=== PATIENT | male | born 1950 | race Caucasian/White ===

== ENCOUNTER 2018-01-12 12:59 | Emergency (ER) | payer MEDICARE, OTHER ==
[~2018-01-12] VITALS: Ht 190.5 cm; Wt 88.5 kg
[~2018-01-12 12:59] MED LIST: MULT-608 PO
[2018-01-12] MEDS ORDERED: fentaNYL INJECTION 100 MCG/2 ML AMP IVP ONE ×2 (13:45→14:30)
[2018-01-12] MEDS ORDERED: ASPI-999 PO (13:56)
--- NOTE | 2018-01-12 14:04 | ED Lower Extremity ---
General Chief Complaint: Lower Extremity Stated Complaint: LT ankle inj Nursing Triage Note: ARRIVED VIA WC TO ROOM 07 WITH COMPLAINTS OF RIGHT ANKLE PAIN. STATES HE LEFT HIS LAWNMOWER IN GEAR TRYING TO GET IT OUT OF THE DITCH AND THE MOWER RAN OVER HIS ANKLE WITH THE BLADES OFF. Nursing Sepsis Screen: No Definite Risk Source: patient Exam Limitations: no limitations History of Present Illness Date Seen by Provider: January 12, 2018 Time Seen by Provider: 14:02 Initial Comments To ER with left ankle pain. He was mowing his yard when his lawnmower got stuck. He got off to push it out of the ditch and the tire ran over his foot. He now has what appears to be a dislocation of the ankle without laceration or abrasion. Onset: just prior to arrival Severity: moderate Pain/Injury Location: left ankle Modifying Factors: Worse With Movement Allergies and Home Medications Allergies Coded Allergies: No Known Drug Allergies (Unverified , 07/23/11) Home Medications Aspirin 81 Mg Tab.chew, 81 MG PO DAILY, (Reported) Patient Home Medication List Home Medication List Reviewed: Yes Constitutional: see HPI EENTM: see HPI Respiratory: no symptoms reported Cardiovascular: no symptoms reported Genitourinary: no symptoms reported Musculoskeletal: see HPI Skin: no symptoms reported Psychiatric/Neurological: No Symptoms Reported Past Ihdoeqd-[id number]-[id number] Hx Patient Social History Alcohol Use: Occasionally Uses Recreational Drug Use: No Smoking Status: Former Smoker Recent Foreign Travel: No Contact w/Someone Who Travel: No Recent Infectious Disease Expo: No Recent Hopitalizations: No Immunizations Up To Date Date of Influenza Vaccine: Apr 23, 2011 Past Medical History Orthopedic Respiratory: No Cardiac: No Neurological: Yes (NEUROPATHY IN ALL EXTREMITIES) Reproductive Disorders: No Sexually Transmitted Disease: No Genitourinary: No Gastrointestinal: No Musculoskeletal: Yes (ARTHRITIS) Endocrine: No HEENT: No Cancer: No Psychosocial: No Integumentary: No Blood Disorders: No Physical Exam Vital Signs Vital Signs - First Documented 01/12/18 13:30 Temp 98.0 Pulse 86 Resp 18 B/P (MAP) 166/85 (112) Pulse Ox 98 Capillary Refill : Less Than 3 Seconds General Appearance: WD/WN, no apparent distress HEENT: PERRL/EOMI, normal ENT inspection Neck: non-tender, full range of motion Respiratory: no respiratory distress, no accessory muscle use Gastrointestinal: normal bowel sounds, non tender Hips: bilateral hip non-tender, bilateral hip normal inspection, bilateral hip normal range of motion Legs: bilateral leg non-tender, bilateral leg normal inspection, bilateral leg normal range of motion Knees: bilateral knee non-tender, bilateral knee normal inspection, bilateral knee normal range of motion Ankles: left ankle deformity, left ankle soft tissue tenderness, left ankle swelling, left ankle other (There is a palpable dorsalis pedis pulse with brisk capillary refill of the toes) Neurologic/Psychiatric: alert, normal mood/affect, oriented x 3 Skin: normal color, warm/dry Procedures/Interventions Patient Education: Explained Benefits, Explained Risks, Pt. Ack. Understanding Agreement on procedure with pt: Yes Breath Sounds per Auscultation: Clear Heart Sounds per Auscultation: Regular Airway Exam: Mouth opens >2 fingers, Neck Full Range of Motion, Visulation of Uvula Total Time spent in CS Attempted reduction with just 75 g of fentanyl but this did not achieve adequate pain control. He was then given 10 mg of etomidate achieved sedation lasting about 7 minutes. The ankle was reduced with simple traction laced in a posterior short leg and stirrup style splint. Remains neurovascularly intact. Progress/Results/Core Measures Results/Orders Lab Results Laboratory Tests Test 01/12/18 13:40 Range/Units White Blood Count 14.1 H 4.3-11.0 10^3/uL Red Blood Count 3.95 L 4.35-5.85 10^6/uL Hemoglobin 13.2 L 13.3-17.7 G/DL Hematocrit 38 L 40-54 % Mean Corpuscular Volume 96 80-99 FL Mean Corpuscular Hemoglobin 33 25-34 PG Mean Corpuscular Hemoglobin Concent 35 32-36 G/DL Red Cell Distribution Width 12.4 10.0-14.5 % Platelet Count 331 130-400 10^3/uL Mean Platelet Volume 8.6 7.4-10.4 FL Neutrophils (%) (Auto) 78 H 42-75 % Lymphocytes (%) (Auto) 13 12-44 % Monocytes (%) (Auto) 8 0-12 % Eosinophils (%) (Auto) 1 0-10 % Basophils (%) (Auto) 0 0-10 % Neutrophils # (Auto) 11.0 H 1.8-7.8 X 10^3 Lymphocytes # (Auto) 1.9 1.0-4.0 X 10^3 Monocytes # (Auto) 1.1 H 0.0-1.0 X 10^3 Eosinophils # (Auto) 0.1 0.0-0.3 10^3/uL Basophils # (Auto) 0.0 0.0-0.1 10^3/uL Neutrophils % (Manual) 72 % Lymphocytes % (Manual) 15 % Monocytes % (Manual) 9 % Eosinophils % (Manual) 4 % Blood Morphology Comment NORMAL Sodium Level 130 L 135-145 MMOL/L Potassium Level 4.2 3.6-5.0 MMOL/L Chloride Level 97 L 98-107 MMOL/L Carbon Dioxide Level 22 21-32 MMOL/L Anion Gap 11 5-14 MMOL/L Blood Urea Nitrogen 13 7-18 MG/DL Creatinine 0.94 0.60-1.30 MG/DL Estimat Glomerular Filtration Rate > 60 BUN/Creatinine Ratio 14 Glucose Level 85 70-105 MG/DL Calcium Level 9.1 8.5-10.1 MG/DL Total Bilirubin 0.4 0.1-1.0 MG/DL Aspartate Amino Transf (AST/SGOT) 21 5-34 U/L Alanine Aminotransferase (ALT/SGPT) 18 0-55 U/L Alkaline Phosphatase 83 40-136 U/L Total Protein 7.6 6.4-8.2 GM/DL Albumin 4.2 3.2-4.5 GM/DL Serum Alcohol 34 H <10 MG/DL My Orders Orders - JANN IDALLO [employer] Cbc With Automated Diff (01/12/18 13:41) Comprehensive Metabolic Panel (01/12/18 13:41) Alcohol (01/12/18 13:41) Ankle, Left, 3 Views (01/12/18 13:41) Tibia/Fibula, Left, 2 Views (01/12/18 13:41) Iv Heplock-Insert (Order) (01/12/18 13:41) Fentanyl Injection (Sublimaze Injection (01/12/18 13:45) Manual Differential (01/12/18 13:40) Fentanyl Injection (Sublimaze Injection (01/12/18 14:30) Ankle, Left, 2 Views (01/12/18 14:28) Etomidate Injection (Amidate Injection) (01/12/18 14:55) Etomidate Injection (Amidate Injection) (01/12/18 15:15) Oxycodone/Apap 5/325mg Tablet (Percocet (01/12/18 16:15) Medications Given in ED Current Medications Medications Dose Ordered Sig/Loc Route Start Time Stop Time Status Last Admin Dose Admin Etomidate 10 mg ONCE ONCE IV 01/12/18 15:15 01/12/18 15:16 DC 01/12/18 15:02 10 MG Fentanyl Citrate 50 mcg ONCE ONCE IVP 01/12/18 13:45 01/12/18 13:46 DC 01/12/18 13:49 50 MCG Fentanyl Citrate 50 mcg ONCE ONCE IVP 01/12/18 14:30 01/12/18 14:31 DC 01/12/18 14:57 50 MCG Vital Signs/I&O 01/12/18 13:30 Temp 98.0 Pulse 86 Resp 18 B/P (MAP) 166/85 (112) Pulse Ox 98 Blood Pressure Mean: 112 Departure Communication (Admissions) 1611-Dr Ko notified. Receommends continued splinting, elevate Impression Primary Impression: Fracture dislocation of ankle Disposition: 01 HOME, SELF-CARE Condition: Stable Departure-Patient Inst. Decision time for Depature: 15:13 Referrals: MARIA ALEJANDRA KO JACQUELINE S DO (PCP/Family) Primary Care Physician Patient Instructions: Ankle Fracture (DC) Add. Discharge Instructions: 1. Elevate the leg on 2-3 pillows while you're sleeping and after sitting in a recliner initially the feet are up. Do not put any weight on this leg, use crutches when walking. Keep this clean dry and covered. Do not let any water come into contact with this. Call the clinic of Dr. Ko tomorrow morning to make an appointment to be seen. Advised them that I spoke with him today in the emergency room and he would like to see you in the clinic tomorrow. Pain medication as directed. Return to ER for any intolerable pain, cold numb toes or other concerns. All discharge instructions reviewed with patient and/or family. Voiced understanding. Scripts Oxycodone HCl/Acetaminophen (Percocet 5-325 mg Tablet) 1 Each Tablet 1 EACH PO Q4H, #30 TAB Prov: JANN DIALLO APRN 5/29/18 Copy Copies To 1: MARIA ALEJANDRA KO PETER J APRN January 12, 2018 14:04
[2018-01-12 14:25] LABS: BASOPHILS % (AUTO) 0 % (0-10); EOSINOPHILS # (AUTO) 0.1 10^3/uL (0.0-0.3); EOSINOPHILS % (AUTO) 1 % (0-10); HEMATOCRIT 38 % (40-54); HEMOGLOBIN 13.2 G/DL (13.3-17.7); LYMPHOCYTES # (AUTO) 1.9 X 10^3 (1.0-4.0); LYMPHOCYTES % (AUTO) 13 % (12-44); MEAN CORPUSCULAR HEMOGLOBIN 33 PG (25-34); MEAN CORPUSCULAR HGB CONC 35 G/DL (32-36); MEAN CORPUSCULAR VOLUME 96 FL (80-99); MEAN PLATELET VOLUME 8.6 FL (7.4-10.4); MONOCYTES # (AUTO) 1.1 X 10^3 (0.0-1.0); MONOCYTES % (AUTO) 8 % (0-12); NEUTROPHILS % (AUTO) 78 % (42-75); PLATELET COUNT 331 10^3/uL (130-400); RED BLOOD COUNT 3.95 10^6/uL (4.35-5.85); RED CELL DISTRIBUTION WIDTH 12.4 % (10.0-14.5); WHITE BLOOD COUNT 14.1 10^3/uL (4.3-11.0)
--- NOTE | 2018-01-12 14:38 | Diagnostic Imaging Report ---
Indication: Left ankle injury. Three views of the left ankle show comminuted bimalleolar fracture with lateral subluxation. Impression: Bimalleolar fracture left ankle with lateral subluxation by about one third of the width of the articular surface. CRITICAL FINDINGS Dictated by: Dictated on workstation # [id number]
--- NOTE | 2018-01-12 14:40 | Diagnostic Imaging Report ---
INDICATION: Ankle fracture. AP and lateral views of left tibia fibula show bimalleolar fracture of the ankle. The tibial and fibular shaft appears to be intact. IMPRESSION: Bimalleolar fracture of the ankle with mild lateral subluxation. Dictated by: Dictated on workstation # [id number]
[2018-01-12 14:41] LABS: ALANINE AMINOTRANSFERASE 18 U/L (0-55); ALBUMIN 4.2 GM/DL (3.2-4.5); ALKALINE PHOSPHATASE 83 U/L (40-136); BILIRUBIN,TOTAL 0.4 MG/DL (0.1-1.0); BUN/CREATININE RATIO 14; CALCIUM 9.1 MG/DL (8.5-10.1); CARBON DIOXIDE 22 MMOL/L (21-32); CHLORIDE 97 MMOL/L (98-107); CREATININE SERUM 0.94 MG/DL (0.60-1.30); GFR ESTIMATED > 60; GLUCOSE 85 MG/DL (70-105); POTASSIUM 4.2 MMOL/L (3.6-5.0); SODIUM 130 MMOL/L (135-145); TOTAL PROTEIN 7.6 GM/DL (6.4-8.2)
[2018-01-12 14:50] LABS: EOSINOPHILS % (MANUAL) 4 %; LYMPHOCYTES % (MANUAL) 15 %; MONOCYTES % (MANUAL) 9 %; NEUTROPHILS % (MANUAL) 72 %; RBC MORPH NORMAL
[2018-01-12] MEDS ORDERED: ETOMIDATE IV SOLN 20 MG/10 ML VIAL ONE (14:55)
[2018-01-12] MEDS ORDERED: ETOMIDATE IV SOLN 20 MG/10 ML VIAL IV ONE (15:15)
--- NOTE | 2018-01-12 15:42 | Diagnostic Imaging Report ---
PATIENT HISTORY: Post reduction left ankle fracture. TECHNIQUE: Two views of the left ankle. COMPARISON: Radiographs from the same day. FINDINGS: Redemonstrated are displaced fractures of the medial and lateral malleoli, with mild lateral subluxation of the talus from the tibia. A definitive posterior malleolus fracture is not identified. There are plantar calcaneal and Achilles tendon enthesophytes. An os peroneum is noted. A fiberglass cast material is seen about the left ankle. There is surrounding soft tissue edema. The AP alignment of the tibiotalar joint appears improved. IMPRESSION: Redemonstrated fractures of the medial and lateral malleoli in the left ankle with mildly improved alignment. Dictated by: Dictated on workstation # [id number]
[2018-01-12] MEDS ORDERED: oxyCODONE/APAP 5/325MG (PERCOCET 5) TABLET PO ONE (16:15)
[2018-01-12] MEDS ORDERED: OXYC-197 PO (16:15)
[2018-01-12 16:56] VITALS: BP 162/99
== END 2018-01-12 16:56 | disposition home or self-care (01) ==
LOC: EDUNIT# 12:59 → ER 13:01
DX: S82.842A Displaced bimalleolar fracture of left lower leg, initial encounter for closed fracture (principal); S93.02XA Subluxation of left ankle joint, initial encounter; G62.9 Polyneuropathy, unspecified; Z87.891 Personal history of nicotine dependence; Z79.82 Long term (current) use of aspirin; W28.XXXA Contact with powered lawn mower, initial encounter
CPT/HCPCS: 27840; 29515; 36415; 73590; 73600; 73610; 80053; 80320; 85007; 85027; 93041; 96374; 96376

== ENCOUNTER 2018-10-02 14:45 | Emergency (ER) | payer MEDICARE, OTHER ==
[~2018-10-02] VITALS: Ht 190.5 cm; Wt 88.5 kg
[~2018-10-02 14:45] MED LIST changes: +ASPI-999 PO; +OXYC1TAB87 PO
[2018-10-02 16:46] LABS: HEMATOCRIT 38 % (40-54); HEMOGLOBIN 13.1 G/DL (13.3-17.7); MEAN CORPUSCULAR HEMOGLOBIN 33 PG (25-34); MEAN CORPUSCULAR HGB CONC 34 G/DL (32-36); MEAN CORPUSCULAR VOLUME 97 FL (80-99); RED CELL DISTRIBUTION WIDTH 12.2 % (10.0-14.5); WHITE BLOOD COUNT 10.3 10^3/uL (4.3-11.0)
[2018-10-02 16:47] LABS: BASOPHILS % (AUTO) 0 % (0-10); CARBON DIOXIDE 23 MMOL/L (21-32); CHLORIDE 95 MMOL/L (98-107); EOSINOPHILS # (AUTO) 0.2 10^3/uL (0.0-0.3); EOSINOPHILS % (AUTO) 2 % (0-10); LYMPHOCYTES # (AUTO) 4.4 X 10^3 (1.0-4.0); LYMPHOCYTES % (AUTO) 43 % (12-44); MEAN PLATELET VOLUME 8.3 FL (7.4-10.4); MONOCYTES # (AUTO) 0.8 X 10^3 (0.0-1.0); MONOCYTES % (AUTO) 8 % (0-12); NEUTROPHILS # (AUTO) 4.8 X 10^3 (1.8-7.8); NEUTROPHILS % (AUTO) 47 % (42-75); PLATELET COUNT 336 10^3/uL (130-400); POTASSIUM 3.8 MMOL/L (3.6-5.0); SODIUM 128 MMOL/L (135-145)
[2018-10-02 16:48] LABS: ALANINE AMINOTRANSFERASE 19 U/L (0-55); ALBUMIN 4.1 GM/DL (3.2-4.5); ALKALINE PHOSPHATASE 75 U/L (40-136); BILIRUBIN,TOTAL 0.4 MG/DL (0.1-1.0); BUN/CREATININE RATIO 10; CALCIUM 8.9 MG/DL (8.5-10.1); CREATINE KINASE MB 5.1 NG/ML (<6.6); CREATININE SERUM 0.93 MG/DL (0.60-1.30); GFR ESTIMATED > 60; GLUCOSE 92 MG/DL (70-105); MAGNESIUM 2.1 MG/DL (1.8-2.4); MYOGLOBIN SERUM 53.1 NG/ML (10.0-92.0); TOTAL PROTEIN 7.4 GM/DL (6.4-8.2)
[2018-10-02] MEDS ORDERED: NS IV 1000 ML 1,000 ML IV ONE (16:53)
--- NOTE | 2018-10-02 17:09 | Diagnostic Imaging Report ---
CHEST 1 VIEW, AP/PA ONLY Indication: Syncope. Comparison: 07/17/2011. Findings: No focal airspace disease in the visualized lungs. Please note that the posterior lower lobes are poorly evaluated by portable radiography. Hyperaerated lung volume is present. No pleural effusion or pneumothorax. Normal cardiomediastinal silhouette. Impression: No acute cardiopulmonary process by portable radiography. Dictated by: Dictated on workstation # [id number]
[2018-10-02 17:29] LABS: BILIRUBIN,URINE NEGATIVE (NEGATIVE); CLARITY,URINE CLEAR; COLOR,URINE YELLOW; GLUCOSE, URINE (UA) NEGATIVE (NEGATIVE); KETONES,URINE 1+ (NEGATIVE); LEUKOCYTE ESTERASE ,URINE NEGATIVE (NEGATIVE); NITRITE,URINE NEGATIVE (NEGATIVE); PH,URINE 6 (5-9); PROTEIN,URINE 2+ (NEGATIVE); UROBILINOGEN,URINE NORMAL (NORMAL)
--- NOTE | 2018-10-02 17:37 | ED Syncope ---
General Chief Complaint: Dizziness/Syncope Stated Complaint: SYNCOPE Nursing Triage Note: EMS advises that the patient was drinking with friends when the patients head when back and the patient became unresponsive. EMS advises that the family/friends attempted CPR on the patient and the patient became more alert. Pt. upon arrival to the ER is A&O and answering all questions appropriately. Source of Information: Patient Exam Limitations: No Limitations Allergies and Home Medications Allergies Coded Allergies: No Known Drug Allergies (Unverified , 10/02/18) Home Medications Aspirin 81 Mg Tab.chew, 81 MG PO DAILY, (Reported) Oxycodone HCl/Acetaminophen 1 Each Tablet, 1 EACH PO Q4H Prescribed by: JANN DIALLO on 01/12/18 1615 Past Qgmzsnr-Gsuelu-Shpvsd Hx Patient Social History Alcohol Use: Occasionally Uses Recreational Drug Use: No Smoking Status: Former Smoker Type Used: Cigarettes Former Smoker, Quit: Aug 01, 2018 Recent Foreign Travel: No Contact w/Someone Who Travel: No Recent Infectious Disease Expo: No Recent Hopitalizations: No Immunizations Up To Date Date of Pneumonia Vaccine: Jul 23, 2009 Date of Influenza Vaccine: Apr 23, 2011 Seasonal Allergies Seasonal Allergies: No Past Medical History Surgeries: Yes (ankle) Orthopedic Respiratory: No Cardiac: No Neurological: Yes (NEUROPATHY IN ALL EXTREMITIES) Reproductive Disorders: No Sexually Transmitted Disease: No Genitourinary: No Gastrointestinal: No Musculoskeletal: Yes (ARTHRITIS) Endocrine: No HEENT: No Cancer: No Prostate Psychosocial: No Integumentary: No Blood Disorders: No Physical Exam Vital Signs Vital Signs - First Documented 10/02/18 14:45 Temp 98.7 Pulse 78 Resp 14 B/P (MAP) 164/91 (115) Pulse Ox 98 Capillary Refill : Less Than 3 Seconds Height, Weight, BMI Height: 6'3.00" Weight: 195lbs. oz. 88.674147xf; BMI Method:Stated Procedures/Interventions Patient Education: Explained Benefits, Explained Risks, Pt. Ack. Understanding Breath Sounds per Auscultation: Clear Heart Sounds per Auscultation: Regular Airway Exam: Mouth opens >2 fingers, Neck Full Range of Motion, Visulation of Uvula Progress/Results/Core Measures Results/Orders Lab Results Laboratory Tests Test 10/02/18 14:51 10/02/18 17:17 Range/Units White Blood Count 10.3 4.3-11.0 10^3/uL Red Blood Count 3.93 L 4.35-5.85 10^6/uL Hemoglobin 13.1 L 13.3-17.7 G/DL Hematocrit 38 L 40-54 % Mean Corpuscular Volume 97 80-99 FL Mean Corpuscular Hemoglobin 33 25-34 PG Mean Corpuscular Hemoglobin Concent 34 32-36 G/DL Red Cell Distribution Width 12.2 10.0-14.5 % Platelet Count 336 130-400 10^3/uL Mean Platelet Volume 8.3 7.4-10.4 FL Neutrophils (%) (Auto) 47 42-75 % Lymphocytes (%) (Auto) 43 12-44 % Monocytes (%) (Auto) 8 0-12 % Eosinophils (%) (Auto) 2 0-10 % Basophils (%) (Auto) 0 0-10 % Neutrophils # (Auto) 4.8 1.8-7.8 X 10^3 Lymphocytes # (Auto) 4.4 H 1.0-4.0 X 10^3 Monocytes # (Auto) 0.8 0.0-1.0 X 10^3 Eosinophils # (Auto) 0.2 0.0-0.3 10^3/uL Basophils # (Auto) 0.0 0.0-0.1 10^3/uL Sodium Level 128 L 135-145 MMOL/L Potassium Level 3.8 3.6-5.0 MMOL/L Chloride Level 95 L 98-107 MMOL/L Carbon Dioxide Level 23 21-32 MMOL/L Anion Gap 10 5-14 MMOL/L Blood Urea Nitrogen 9 7-18 MG/DL Creatinine 0.93 0.60-1.30 MG/DL Estimat Glomerular Filtration Rate > 60 BUN/Creatinine Ratio 10 Glucose Level 92 70-105 MG/DL Calcium Level 8.9 8.5-10.1 MG/DL Corrected Calcium 8.8 8.5-10.1 MG/DL Magnesium Level 2.1 1.8-2.4 MG/DL Total Bilirubin 0.4 0.1-1.0 MG/DL Aspartate Amino Transf (AST/SGOT) 27 5-34 U/L Alanine Aminotransferase (ALT/SGPT) 19 0-55 U/L Alkaline Phosphatase 75 40-136 U/L Creatine Kinase MB 5.1 <6.6 NG/ML Myoglobin 53.1 10.0-92.0 NG/ML Troponin I < 0.028 <0.028 NG/ML Total Protein 7.4 6.4-8.2 GM/DL Albumin 4.1 3.2-4.5 GM/DL Serum Alcohol 124 H <10 MG/DL My Orders Orders - MOMO HOFFMAN MD Cbc With Automated Diff (10/02/18 14:51) Alcohol (10/02/18 14:51) Creatine Kinase Mb (10/02/18 14:51) Comprehensive Metabolic Panel (10/02/18 14:51) Magnesium (10/02/18 14:51) Myoglobin Serum (10/02/18 14:51) Troponin I (10/02/18 14:51) Urinalysis (10/02/18 16:46) Saline Lock/Iv-Start (10/02/18 16:53) Ns Iv 1000 Ml (Sodium Chloride 0.9%) (10/02/18 16:53) Chest 1 View, Ap/Pa Only (10/02/18 ) Medications Given in ED Current Medications Medications Dose Ordered Sig/Loc Route Start Time Stop Time Status Last Admin Dose Admin Sodium Chloride 1,000 ml @ 0 mls/hr Q0M ONCE IV 10/02/18 16:53 10/02/18 16:54 DC 10/02/18 17:02 0 MLS/HR Vital Signs/I&O 10/02/18 14:45 Temp 98.7 Pulse 78 Resp 14 B/P (MAP) 164/91 (115) Pulse Ox 98 Blood Pressure Mean: 115 Departure Impression Primary Impression: Syncope Qualified Codes: R55 - Syncope and collapse Additional Impressions: Hyponatremia Alcohol intoxication Qualified Codes: F10.929 - Alcohol use, unspecified with intoxication, unspecified Disposition: 01 HOME, SELF-CARE Condition: Improved Departure-Patient Inst. Decision time for Depature: 17:36 Referrals: RICKY PRICE DO (PCP/Family) Primary Care Physician Patient Instructions: Hyponatremia, Syncope (Fainting) (DC) Add. Discharge Instructions: Reduce your alcohol consumption but do not completely stop alcohol abruptly without direction from your primary care provider. Doing some may cause serious withdrawal symptoms including fatal seizures. Eat a well-balanced diet with at least 3 meals a day. Add some salt to your food. Follow-up with your primary care provider as soon as possible. Call Thursday for an appointment. Return to the emergency room if you have worsening symptoms. All discharge instructions reviewed with patient and/or family. Voiced understanding. MOMO HOFFMAN MD Oct 02, 2018 17:37
[2018-10-02 17:48] LABS: BACTERIA,URINE NEGATIVE /HPF; HYALINE CASTS, URINE 0-2 /LPF; RBC,URINE 0-2 /HPF; SQUAMOUS EPITHELIAL CELL,UR 0-2 /HPF
[2018-10-02 18:27] VITALS: BP 163/91
== END 2018-10-02 18:27 | disposition home or self-care (01) ==
LOC: ER 14:45 → EDUNIT# 14:45 → ER 18:27
DX: R55 Syncope and collapse (principal); F10.120 Alcohol abuse with intoxication, uncomplicated; E87.1 Hypo-osmolality and hyponatremia; Z85.46 Personal history of malignant neoplasm of prostate; Z87.891 Personal history of nicotine dependence; Z79.82 Long term (current) use of aspirin
CPT/HCPCS: 36415; 71045; 80053; 80320; 81000; 82553; 83735; 83874; 84484; 85025

== ENCOUNTER 2020-07-04 08:00 | Outpatient (RCR) | payer MEDICARE, OTHER | END 2020-08-20 09:38 | disposition home or self-care (01) | PROVIDERS: ATTEND Orthopaedic Surgery | DX: M62.512 Muscle wasting and atrophy, not elsewhere classified, left shoulder (principal); G56.92 Unspecified mononeuropathy of left upper limb | CPT/HCPCS: 97162; G0283 ==

== ENCOUNTER 2021-08-12 08:42 | Emergency (ER) | payer MEDICARE, OTHER ==
[~2021-08-12] VITALS: Ht 193 cm; Wt 84.0 kg
--- NOTE | 2021-08-12 09:51 | ED Upper Extremity ---
General Chief Complaint: Upper Extremity Stated Complaint: WEAKNESS,R SHOULDER PAIN Nursing Triage Note: PT TO [facility] 8 BY AMBULANCE WITH COMPLAINT OF RIGHT SHOULDER PAIN, NECK, AND BUTT PAIN. STATES HE FELL THURSDAY AT HOME. STATES TRIPPED DUE TO NEUROPATHY. Source: patient, family Exam Limitations: no limitations (BHAVIN KIM STUDENT) History of Present Illness Date Seen by Provider: Aug 12, 2021 Time Seen by Provider: 10:00 Initial Comments This is a 70 YO male presenting to the ED by EMS for right shoulder pain. Pt states that 4 days ago, he tripped and fell in his kitchen and hit his right shoulder on the kitchen counter. Denies hitting his head or losing consciousne ss. Not on blood thinners. Pt's and son were able to help him off the floor and has been able to ambulate since. Pt has been taking aspirin and has been putting Salon Pas patches on the right shoulder, both without improvement. Pt has decreased arm movement due to pain and today noticed some surrounding bruising while she was helping him dress for the day. Onset: last week Pain/Injury Location: left shoulder Method of Injury: fell Modifying Factors: Worse With Movement (BHAVIN KIM MED STUDENT) Allergies and Home Medications Allergies Coded Allergies: No Known Drug Allergies (Unverified , 10/02/18) Patient Home Medication List Home Medication List Reviewed: Yes (TOAN KAUR MD) Aspirin (Aspirin) 81 Mg Tab.chew, 81 MG PO DAILY, (Reported) Entered as Reported by: JOEY PEREYRA on 01/12/18 1356 Hydrocodone/Acetaminophen (Hydrocodone-Acetamin 5-325 mg) 1 Each Tablet, 1 TAB PO Q6H PRN for PAIN-MODERATE (5-7) Prescribed by: TOAN KAUR on 08/12/21 1231 Oxycodone HCl/Acetaminophen (Percocet 5-325 mg Tablet) 1 Each Tablet, 1 EACH PO Q4H Prescribed by: JANN DIALLO on 01/12/18 1615 Review of Systems Constitutional: No chills, No fever EENTM: No blurred vision, No double vision Cardiovascular: No chest pain, No edema Gastrointestinal: No abdominal pain, No nausea Genitourinary: No decreased output, No discharge Musculoskeletal: see HPI, back pain (chronic), joint pain Skin: No pruritus, No rash Psychiatric/Neurological: Denies Headache, Denies Numbness (BHAVIN KIM STUDENT) All Other Systems Reviewed Negative Unless Noted: Yes (Negative excepted noted.) (BHAVIN KIM STUDENT) Past [place]-Zmzahy-Smnoqu Hx Patient Social History Tobacco Use?: No Smoking Status: Former Smoker Use of E-Cig and/or Vaping dev: No Substance use?: No Alcohol Use?: Yes Alcohol type: Beer Alcohol Frequency: Daily Pt feels they are or have been: No (BHAVIN KIM STUDENT) Immunizations Up To Date First/Initial COVID19 Vaccinat: OCTOBER 2020 Second COVID19 Vaccination [place]: NOVEMBER 2020 COVID19 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: MODERNA (BHAVIN KIM) Seasonal Allergies Seasonal Allergies: No (BHAVIN KIM) Past Medical History Surgeries: Yes (ankle) Orthopedic Respiratory: No Cardiac: No Neurological: Yes (NEUROPATHY IN ALL EXTREMITIES) Neuropathy Reproductive Disorders: No Sexually Transmitted Disease: No Genitourinary: No Gastrointestinal: No Musculoskeletal: Yes (ARTHRITIS) Endocrine: No HEENT: No Cancer: No Prostate Psychosocial: No Integumentary: No Blood Disorders: No (BHAVIN KIM STUDENT) Physical Exam Vital Signs Vital Signs - First Documented 08/12/21 08:43 Temp 36.6 Pulse 96 Resp 18 B/P (MAP) 109/77 (88) Pulse Ox 95 O2 Delivery Room Air (TOAN KAUR MD) Vital Signs Capillary Refill : Less Than 3 Seconds (BHAVIN KIM STUDENT) Height, Weight, BMI Height: 6'3.00" Weight: 195lbs. oz. 88.885284al; 22.00 BMI Method:Stated General Appearance: WD/WN, no apparent distress HEENT: PERRL/EOMI; No scleral icterus (R), No scleral icterus (L); other (NC/AT; no Davalos's sign or Raccoon eyes) Neck: non-tender, supple, normal inspection Cardiovascular: regular rate, rhythm, no edema, no murmur Respiratory: chest non-tender, lungs clear, normal breath sounds, no respiratory distress, no accessory muscle use Gastrointestinal: non tender, soft; No distended, No guarding Back: no CVA tenderness, no vertebral tenderness Shoulder: No bone tenderness, No deformity; ecchymosis (to the right posterior shoulder over the scapula with no tenderness; ecchymosis to the right anterior anterior shoulder under the clavicle with no tenderness), limited ROM (to the right shoulder secondary to pain); No swelling Elbow/Forearm: Right (skin tear/abrasion to the right elbow), bone tenderness, deformity, ecchymosis Hand: Left (ecchymosis to volar wrist without underlying tenderness) Neurologic/Tendon: other (equal curator of collections strength bilaterally) Neurologic/Psychiatric: alert, normal mood/affect, oriented x 3; No sensory deficit Skin: normal color, warm/dry (BHAVIN KIM MED STUDENT) Procedures/Interventions Patient Education: Explained Benefits, Explained Risks, Pt. Ack. Understanding Breath Sounds per Auscultation: Clear Heart Sounds per Auscultation: Regular Airway Exam: Mouth opens >2 fingers, Neck Full Range of Motion, Visulation of Uvula (BHAVIN KIM MED STUDENT) Patient Education: Explained Benefits, Explained Risks, Pt. Ack. Understanding Agreement on procedure with pt: Yes Breath Sounds per Auscultation: Clear Heart Sounds per Auscultation: Regular Airway Exam: Mouth opens >2 fingers, Neck Full Range of Motion, Visulation of Uvula Sedation Adminstration Time: 11:53 Total Time spent in CS 27 min 100mg propofol used to sedate patient, augmented with 50mcg fentanyl. traction/ counter traction used to reduce dislocation. patient neurovascularly intact post reduction; Re-examination Time: 12:30 Re-examination awake and oreinted (TOAN KAUR MD) Splinting and Joint Reduction : Location: right shoulder Pre-Proc Neuro Vasc Exam: normal Post-Proc Neuro Vasc Exam: normal Joint Reduction Site: shoulder (R) Reduction Attempts: 3 Pre-Procedure NV Exam: Yes post joint reduction film: no fracture seen Immobilizers: Large Shoulder (TOAN KAUR MD) Progress/Results/Core Measures Results/Orders My Orders Orders - TOAN KAUR MD Shoulder, Right, 3 Views (08/12/21 09:52) Ns Iv 1000 Ml (Sodium Chloride 0.9%) (08/12/21 11:30) Propofol Injection (Diprivan Injection) (08/12/21 11:30) Fentanyl Inj (Sublimaze Injection) (08/12/21 11:58) Shoulder, Right, 1 View (08/12/21 12:18) (TOAN KAUR MD) Medications Given in ED (TOAN KAUR MD) Vital Signs/I&O (TOAN KAUR MD) Blood Pressure Mean: 88 Progress Progress Note : Time: 12:27 Progress Note 70-year-old male presents to the emergency department with a chief complaint of right shoulder pain. He had a mechanical trip and fall 4 days ago. Hit his right shoulder on the kitchen counter. Patient states that he has had significant pain with limited range of motion to the right upper extremity. He has been taking aspirin and using abyq-drt-orpmbot pain patches without any relief. His became concerned because he was in so much distress and discomfort this morning. Is not on blood thinners, did not hit his head or have a loss of consciousness. No other complaints of illness or injury. Physical examination remarkable for dislocated right shoulder. He is neurovascularly intact to the right upper extremity. He does have a skin avulsion/abrasion to the medial aspect of the right elbow. No bony injury to the elbow, wrist or hand. Awake alert oriented mentating normally. Patient was sedated with 100 mg of propofol. Traction countertraction used to reduce the right shoulder dislocation. No evidence of fracture on pre or post reduction films. Patient will be referred to Dr. Morris for further evaluation of the right shoulder. He is placed in a shoulder sling. Pain medicine sent to his pharmacy. All questions have been sought and answered (TOAN KAUR MD) Departure Impression Primary Impression: Dislocation of right shoulder joint Qualified Codes: S43.004A - Unspecified dislocation of right shoulder joint, initial encounter Disposition: 01 HOME, SELF-CARE Condition: Stable Departure-Patient Inst. Decision time for Depature: 12:29 (TOAN KAUR MD) Referrals: ANNA MORRIS MD Patient Instructions: Shoulder Dislocation (DC) Add. Discharge Instructions: Please wear the sling, keep it on until you follow-up with Dr. Morris. Please call today for a follow-up appointment this week. I have sent a prescription for pain medicines to the [facility] pharmacy. You can take 1 every 6 hours as needed for severe pain. These medications can cause constipation, I recommend you take an bidp-iur-zcpizzb stool softener daily while you are taking hydrocodone. You can also take dhrt-zqt-svoezgy ibuprofen, 2 tablets every 6 hours as needed for pain. Always take ibuprofen with food. Return to the emergency room for any worsening swelling in the right arm, numbness weakness or tingling or any other emergent concerning symptoms. Scripts Hydrocodone/Acetaminophen (Hydrocodone-Acetamin 5-325 mg) 1 Each Tablet 1 TAB PO Q6H PRN for PAIN-MODERATE (5-7), #15 TAB Prov: TOAN KAUR MD 08/12/21 BHAVIN KIM MED STUDENT Aug 12, 2021 09:51 TOAN KAUR MD Aug 12, 2021 12:31
--- NOTE | 2021-08-12 10:51 | Diagnostic Imaging Report ---
EXAM: SHOULDER, RIGHT, 3 VIEWS. INDICATION: Fall 4 days ago. Right shoulder pain. COMPARISON: None. FINDINGS: Anterior dislocation of the right humerus in relation to the glenoid. No bony [place] or Hill-Sachs deformities are identified. Moderate degenerative changes in the glenoid. Advanced degenerative changes in the right acromioclavicular joint. No radiopaque foreign bodies. IMPRESSION: Right anterior shoulder dislocation. No fractures are identified. Dictated by: Dictated on workstation # [id number]
[2021-08-12] MEDS ORDERED: NS IV 1000 ML 1,000 ML IV SCH (11:30)
[2021-08-12] MEDS ORDERED: proPOfol 200 MG/20 ML (DIPRIVAN) VIAL IV ONE (11:30)
[2021-08-12] MEDS ORDERED: fentaNYL INJ 100 MCG/2 ML AMP ONE (11:58)
[2021-08-12] MEDS ORDERED: ACHD5005 PO (12:31)
--- NOTE | 2021-08-12 13:21 | Diagnostic Imaging Report ---
HISTORY: Right shoulder dislocation, postreduction TECHNIQUE: Frontal view of the right shoulder. COMPARISON: Radiograph from the same day. FINDINGS: Alignment of the right shoulder appears normal on this single view. There are severe degenerative changes in the acromioclavicular joint and moderate degenerative change in the glenohumeral joint. There does appear to be a Hill-Sachs lesion. IMPRESSION: 1. Alignment of the right shoulder appears normal. There is a Hill-Sachs lesion. 2. There are degenerative changes in the right shoulder. Dictated by: Dictated on workstation # [id number]
[2021-08-12 13:35] VITALS: BP 141/79
== END 2021-08-12 13:35 | disposition home or self-care (01) ==
LOC: ER 08:43
DX: S43.014A Anterior dislocation of right humerus, initial encounter (principal); S60.212A Contusion of left wrist, initial encounter; S50.311A Abrasion of right elbow, initial encounter; Z87.891 Personal history of nicotine dependence; Z79.82 Long term (current) use of aspirin; W01.198A Fall on same level from slipping, tripping and stumbling with subsequent striking against other object, initial encounter; Y92.000 Kitchen of unspecified non-institutional (private) residence as the place of occurrence of the external cause
CPT/HCPCS: 73020; 73030; 93041; 99285; A4565